=== PATIENT | male | born 1955 | race Caucasian/White ===

== ENCOUNTER 2021-09-11 21:37 | Observation (INO) | payer MEDICARE ==
[~2021-09-11] VITALS: Ht 175.3 cm; Wt 113.4 kg
[~2021-09-11 21:37] MED LIST: CALCIUM500 MG PO; CIMZIA400 MG SQ; FERROUS SULFAT325 M2 PO; FISH OIL 1,0001 EACH PO; HYDROCHLOROTHIA25 MG PO; IBUPROFEN600 MG PO; LIPITOR TAB 2020 MG PO; LOPRESSOR 50 MG50 MG PO; NORVASC10 MG PO; OMNICEF 300 MG300 MG PO; PEPCID40 MG PO; PERCOCET 5/325 T1 EA PO; PLAQUENIL 200200 MG PO; PREDNISONE 1 MG1 MG PO; PREDNISONE 10 M10 MG PO; PROAIR HFA8.5 GM INH; TYLENOL 500 MG500 MG PO; VOLTAREN EC 7575 MG PO
[2021-09-11 22:11] LABS: HEMOGLOBIN 13.8 gm/dl (14.0-17.5); RED BLOOD COUNT 4.63 M/UL (4.20-5.50); WHITE BLOOD COUNT 15.6 K/UL (4.5-11.0)
[2021-09-12] MEDS ORDERED: TRAMADOL HCL50 MG PO (10:36)
[2021-09-13 02:16] LABS: HEMOGLOBIN 12.1 gm/dl (14.0-17.5)
[2021-09-13 02:20] LABS: RED BLOOD COUNT 4.12 M/UL (4.20-5.50); WHITE BLOOD COUNT 10.2 K/UL (4.5-11.0)
== END 2021-09-13 11:18 | disposition home or self-care (01) ==
LOC: ER1 21:37 → CDU 09-12 01:04 → PROG CARE 09-12 20:30
PROVIDERS: Student in an Organized Health Care Education/Training Program; ADMIT Internal Medicine
DX: I21.4 Non-ST elevation (NSTEMI) myocardial infarction (principal); R50.9 Fever, unspecified; R41.0 Disorientation, unspecified; D72.829 Elevated white blood cell count, unspecified; G93.40 Encephalopathy, unspecified; N17.9 Acute kidney failure, unspecified; R01.1 Cardiac murmur, unspecified; I34.0 Nonrheumatic mitral (valve) insufficiency; M06.9 Rheumatoid arthritis, unspecified; I10 Essential (primary) hypertension; E78.5 Hyperlipidemia, unspecified; Z87.891 Personal history of nicotine dependence; Z79.899 Other long term (current) drug therapy; Z20.822 Contact with and (suspected) exposure to COVID-19
CPT/HCPCS: ECHO; 36415; 70450; 71045; 80048; 80076; 81001; 82550; 82553; 83605; 84484; 85025; 85379; 85610; 85652; 85730; 86140; 87040; 93005; 93306; 93880; 96365; 96375; 96376; 99285; G0378; J0696; J1644; J3370; J7030; J7070; Q9967; U0002

== ENCOUNTER → 2021-09-16 | Outpatient (CLI) | payer MEDICARE ==
[~2021-09-16] MED LIST changes: +TRAMADOL HCL50 MG PO
== END ==
LOC: EMI 15:57
DX: I63.9 Cerebral infarction, unspecified (principal)
CPT/HCPCS: 70551

== ENCOUNTER 2021-11-22 14:27 | Emergency (ER) | payer MEDICARE ==
[2021-11-22 18:36] LABS: HEMOGLOBIN 12.4 gm/dl (14.0-17.5); RED BLOOD COUNT 4.33 M/UL (4.20-5.50); WHITE BLOOD COUNT 10.9 K/UL (4.5-11.0)
== END 2021-11-22 20:59 | disposition home or self-care (01) ==
LOC: ER1 14:27
PROVIDERS: Physician Assistant
DX: R60.0 Localized edema (principal); E78.5 Hyperlipidemia, unspecified; I10 Essential (primary) hypertension
CPT/HCPCS: 73620; 80053; 83605; 83880; 85025; 85652; 86140; 99283